=== PATIENT | male | born 1975 | race Caucasian/White ===

== ENCOUNTER 2018-07-18 09:14 | Emergency (ER) | payer OTHER, SELFPAY ==
[2018-07-18 09:00] VITALS: BP 126/75; PULSE 84; RESP 14; TEMP 37; O2SAT 95
[2018-07-18 09:15] VITALS: BP 126/73; PULSE 79; RESP 18; O2SAT 97
--- NOTE | 2018-07-18 09:54 | ED.NEUROSD ---
HPI - Neuro Symptoms/Deficit General Chief Complaint: Neuro Symptoms/Deficit Stated Complaint: Confusion Time Seen by Provider: 07/18/18 09:15 Source: patient, family and EMS Mode of arrival: ambulatory Limitations: no limitations History of Present Illness HPI Narrative: Patient is brought to the emergency department after being found to seem incoordinated and mentating slowly when entering the [employer] base this morning. 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 He said he decided to stay up last night and do his paperwork, and was up till 4:00 a.m. this morning. Patient states he normally gets up at 5 to go to work. Patient states generally, he gets 5-6 hours of sleep at night. Patient denies any recent illnesses. He has not had any chest pain, shortness of breath, focal neurologic deficits, nausea, vomiting, or diarrhea. He denies any recent head injury. He states that he is healthy other than hypertension. Patient was admitted to the hospital in April for ?Wellbutrin toxicity?, after having a 57 minutes grand mal seizure, he states. Patient was kept in the intensive care unit, and was discharged on valproic acid. He has been followed up since, but it is not clear whether he has a seizure disorder officially diagnosed. Patient states he does not feel as though he had a seizure today. He states that he felt very tired after being up all night, and states it has been difficult to stay awake. He states that this he feels is what led to his seeming incoordination. Patient denies visual changes. He denies weakness or numbness. No headache. Patient states he took his normal medications, including his OxyContin this morning. He states his medications do make him feel a little bit drowsy normally. He states he is feeling a little bit better than it was, but feels like he needs a nap. The patient denies use of alcohol or drugs. On Anticoagulants: No Related Data Home Medications Medication Instructions Recorded Confirmed Seroquel 75 mg PO TID 07/18/18 07/18/18 acetaminophen 1,000 mg PO BID 07/18/18 07/18/18 clonazepam 1 mg PO QAM PRN 07/18/18 07/18/18 hydrochlorothiazide 25 mg PO QAM 07/18/18 07/18/18 lacosamide [Vimpat] 200 mg PO BID 07/18/18 07/18/18 montelukast [Singulair] 10 mg PO QAM 07/18/18 07/18/18 nebivolol [Bystolic] 10 mg PO QPM 07/18/18 07/18/18 oxycodone 5 mg Q8HR 07/18/18 07/18/18 oxycodone [OxyContin] 30 mg PO Q8HR 07/18/18 07/18/18 ranitidine HCl [Zantac] 150 mg PO BID 07/18/18 07/18/18 rosuvastatin 20 mg PO QPM 07/18/18 07/18/18 valproic acid 500 mg PO BID 07/18/18 07/18/18 Allergies Allergy/AdvReac Type Severity Reaction Status Date / Time bupropion [From Wellbutrin] Allergy Severe Seizure Verified 07/18/18 09:24 duloxetine [From Cymbalta] Allergy Unknown Verified 07/18/18 09:24 levetiracetam [From Keppra] Allergy Unknown Verified 07/18/18 09:24 Review of Systems Constitutional Denies chills, Denies fever(s), Denies lethargy and Denies weakness Eyes Denies change in vision, Denies eye discharge, Denies irritation and Denies loss of vision ENT Ears, Nose, Mouth, and Throat: Denies change in voice, Denies neck pain and Denies sore throat Cardiovascular Denies chest pain, Denies irregular heart rhythm, Denies lightheadedness, Denies palpitations, Denies dyspnea, Denies dyspnea on exertion and Denies orthopnea Respiratory Denies cough, Denies dyspnea, Denies dyspnea on exertion and Denies wheezing Gastrointestinal Gastrointestinal: Denies abdominal pain, Denies change in bowel habits, Denies diarrhea, Denies nausea and Denies vomiting Genitourinary Denies hematuria, Denies flank pain, Denies urinary incontinence and Denies urinary urgency Musculoskeletal Denies neck pain Integumentary/Breasts Denies pruritus, Denies erythema, Denies rash and Denies wounds Neurologic Denies confusion, Reports lack of coordination, Denies loss of vision and Denies weakness Comments: Fatigue Psychiatric Denies anxiety, Denies confusion, Denies depression, Denies homicidal ideation and Denies suicidal ideation Endocrine Denies palpitations Hematologic/Lymphatic Denies easy bruising Allergic/Immunologic Denies wheezing [facility] Medical History (Updated 07/18/18 @ 13:18 by Shirley Randolph MD) HTN (hypertension) (Acute) Seizure-like activity (Acute) Chronic back pain (Acute) Chronic pain (Acute) Endotracheally intubated (Acute) Hearing loss (Acute) Hyperlipemia (Acute) Hypertriglyceridemia (Acute) Macular edema (Acute) Seizure disorder (Acute) Surgical History (Updated 07/18/18 @ 10:20 by Hailey Vang RN) No pertinent past surgical history (Acute) Hx of spinal fusion (Acute) Social History Smoking Status: Never smoker Social History Smoking Status: Never smoker Exam Initial Vital Signs Initial Vital Signs: Vital Signs Temperature 98.6 F 07/18/18 09:00 Pulse Rate 84 07/18/18 09:00 Respiratory Rate 14 07/18/18 09:00 Blood Pressure 126/75 07/18/18 09:00 Pulse Oximetry 95 07/18/18 09:00 Const General: cooperative and well developed Nutritional Appearance: well nourished and overweight Orientation: awake, oriented x3 and not confused Other: Patient is drowsy, but alert when aroused. He does occasionally fall asleep during our conversation. HENMT Head: normocephalic and atraumatic Ears: external ears normal Nose: external nose normal and No nasal discharge Face and sinus: face symmetric and No dry mucous membranes Mouth: oral mucosae normal and moist mucous membranes Teeth and gingiva: dentition normal Eyes General: appearance normal, both eyes and all related structures Eyelids: eyelids normal Conjunctivae: conjunctivae normal Sclera: sclerae normal Pupils: PERRL EOM: EOM intact bilaterally Neck Neck: normal visual inspection, trachea midline, No lymphadenopathy, No midline deformity and No JVD Lymphatic: No lymphedema Chest Chest: normal inspection of the chest Resp Effort & Inspection: normal respiratory effort, able to speak in complete sentences, no respiratory distress and no use of accessory muscles Auscultation: clear to auscultation bilaterally, no rales, no rhonchi and no wheezes Cardio Rate: regular rate Rhythm: regular rhythm Heart Sounds: no click, no gallops, no murmurs and no rubs Pulses: normal peripheral pulses GI Inspection: non-distended Palpation: soft, no hepatosplenomegaly, No guarding, No pulsatile mass and No tender Auscultation: normal bowel sounds Back/Spine/Pelvis Back: No CVA tenderness Cervical Spine: cervical ROM normal and No pain with cervical ROM Thoracic/Lumbar Spine: thoracic and lumbar spine normal to inspection Skin General: no rashes or lesions noted, No jaundice and No petechiae Neuro General: alert, oriented x3, gait normal and no focal motor deficits Speech: speech normal Extrem General: full ROM, no clubbing, cyanosis or edema, no pedal edema and no calf tenderness Psych Appearance: well kempt Mental Status: mental status grossly normal Attitude: cooperative Thought Content: normal and suicidality Judgment: judgment good Course Course Narrative: Patient was worked up with labs, and given IV fluids in the emergency department. The patient did not have any obvious triggers for this episode, and I felt that most likely, he was suffering from severe sleep deprivation, as he does not get enough sleep at baseline, and got only 1 hour sleep last night. Additionally, the patient has a number of medications which could be potentially sedating, and this probably has also contributed. The patient was worked up with labs, including ethanol level, and was observed in the emergency department. His , a nurse practitioner, did arrive and provided more information. The patient was re-evaluated after several hours, and found to be doing much better. He was able to ambulate to the bathroom on his own without difficulty. We have discussed that patient very much needs to get sleep on a regular basis. One of the patient's superiors is also present, and states that the patient may be off the rest of today as well as tomorrow to recuperate. The patient would like to come to work tomorrow, and his superior has stated that the patient should come in late if he does come in. I have written a work note to this effect. Patient and family are comfortable with the patient being discharged home, and we have discussed home management the symptoms, as well as the usual indications for return. Orders Ordered: ED Orders 07/18/18 09:30 Complete Blood Count AUTO DIFF Stat Comprehensive Metabolic Panel Stat Ethanol (ETOH) Stat Lipase Stat 07/18/18 09:50 Valproic Acid (Depakene) Total Stat Vital Signs - 8 hr 04/03/19 09:00 07/18/18 09:15 07/18/18 10:10 Temperature 98.6 F Pulse Rate 84 79 74 Respiratory Rate 14 18 21 Blood Pressure 126/75 Blood Pressure [Right Arm] 126/73 113/68 Pulse Oximetry 95 97 98 07/18/18 10:45 07/18/18 11:28 07/18/18 12:30 Temperature Pulse Rate 75 70 61 Respiratory Rate 18 13 14 Blood Pressure Blood Pressure [Right Arm] 120/56 L 103/66 107/59 L Pulse Oximetry 98 93 92 MDM - Neuro Symptoms/Deficit Medical Records Attestation: I reviewed the patient's medical records. Lab Data Attestation: I reviewed the patient's lab results. Result diagrams: 07/18/18 09:30 07/18/18 09:30 Lab Results 07/18/18 07/18/18 07/18/18 Range/Units 09:30 09:30 11:20 WBC 6.1 (4.5-11.0) X10^3/uL RBC 4.54 (4.5-5.9) X10^6/uL Hgb 13.4 L (13.5-17.5) g/dL Hct 39.5 L (41-53) % MCV 87.0 (80-100) fL MCH 29.6 (26-34) PG MCHC 34.0 (30-36) % RDW 13.7 (11.6-14.8) % Plt Count 263 (150-400) X10^3/uL Neut % (Auto) 48.0 L (50-75) % Lymph % (Auto) 34.2 (25-40) % [place] % (Auto) 11.6 (3-14) % Eos % (Auto) 5.3 H (2-4) % Baso % (Auto) 0.9 (0-2) % Neut # (Auto) 2900 (1467-6431) /uL Lymph # (Auto) 2100 (5496-8981) /uL [place] # (Auto) 700 (0-900) /uL Eos # (Auto) 300 (0-450) /uL Baso # (Auto) 100 (0-100) /uL Sodium 141 (137-145) mmol/L Potassium 3.9 (3.4-5.1) mmol/L Chloride 99 (98-107) mmol/L Carbon Dioxide 28 (22-32) mmol/L BUN 17 (9-20) mg/dL Creatinine 0.80 (0.66-1.25) mg/dL Estimated GFR > 60.0 (>60) mL/min BUN/Creatinine Ratio 21.3 (6-22) Glucose 186 H (70-100) mg/dL Calcium 9.6 (8.4-10.2) mg/dL Total Bilirubin 0.3 (0.2-1.3) mg/dL AST 51 (17-59) IU/L ALT 47 (21-72) IU/L Alkaline Phosphatase 51 (38-126) U/L Total Protein 7.5 (6.3-8.2) g/dL Albumin 4.4 (3.5-5.0) g/dL Globulin 3.1 (1.7-4.1) g/dL Albumin/Globulin Ratio 1.4 (1.0-2.8) Lipase 53 (23-300) U/L Urine Opiates Screen Cancelled Ur Oxycodone Screen Cancelled Urine Methadone Screen Cancelled Ur Barbiturates Screen Cancelled U Tricyclic Antidepress Cancelled Ur Phencyclidine Scrn Cancelled Ur Amphetamines Screen Cancelled U Methamphetamines Scrn Cancelled Ur MDMA Scrn (Ecstasy) Cancelled U Benzodiazepines Scrn Cancelled Urine Cocaine Screen Cancelled U Marijuana (THC) Screen Cancelled Ethyl Alcohol < 10 mg/dL Urine Dip Bedside Urine Glucose Negative Bedside Urine Bilirubin - Negative Bedside Urine Ketone + 15 Urine Specific [place] 1.030 Bedside Urine Occult Blood - Negative Bedside Urine pH 6.0 Bedside Urine Protein - Negative Bedside Urine Urobilinogen - Negative Bedside Urine Nitrite - Negative Bedside Urine Leukocytes - Negative Esterase Discharge Plan Departure Patient Disposition: Home Clinical Impression: Sleep deprivation Adverse drug reaction Qualifiers: Encounter type: initial encounter Qualified Code(s): T50.905A - Adverse effect of unspecified drugs, medicaments and biological substances, initial encounter Discharge Date/Time: 07/18/18 13:27 Interventions: ED Discharge Assessment Last Done: 07/18/18 13:36 Instructions: DI for Adverse Drug Reaction -- Other, DI for Insomnia Prescriptions: No Action valproic acid 250 mg Capsule 500 mg PO BID RF: 0 Bystolic 10 mg Tablet 10 mg PO QPM RF: 0 Vimpat 200 mg Tablet 200 mg PO BID RF: 0 hydrochlorothiazide 25 mg tablet 25 mg PO QAM RF: 0 rosuvastatin 20 mg tablet 20 mg PO QPM RF: 0 oxycodone [OxyContin] 30 mg tablet,oral only,ext.rel.12 hr 30 mg PO Q8HR RF: 0 oxycodone 10 mg tablet 5 mg Q8HR RF: 0 acetaminophen 500 mg Tablet 1,000 mg PO BID RF: 0 ranitidine HCl [Zantac] 150 mg Tablet 150 mg PO BID RF: 0 montelukast [Singulair] 10 mg Tablet 10 mg PO QAM RF: 0 Seroquel bottle 75 mg PO TID RF: 0 clonazepam 1 mg Tablet,Disintegrating 1 mg PO QAM PRN (Reason: Seizure Activity) RF: 0 Referrals: Dane Kenny [Primary Care Provider] - Stand Alone Forms: Work Release Note
--- NOTE | 2018-07-18 10:01 | ED_ITS ---
HPI - Neuro Symptoms/Deficit General Chief Complaint: Neuro Symptoms/Deficit Stated Complaint: Confusion Time Seen by Provider: 07/18/18 09:15 Source: patient, family and EMS Mode of arrival: ambulatory Limitations: no limitations History of Present Illness HPI Narrative: Patient is brought to the emergency department after being found to seem incoordinated and [place] [employer] [place] 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 He said he decided to stay up last night and do his paperwork, and was up till 4:00 a.m. this morning. Patient states he normally gets up at 5 to go to work. Patient states generally, he gets 5-6 hours of sleep at night. Patient denies any recent illnesses. He has not had any chest pain, shortness o f breath, focal neurologic deficits, nausea, vomiting, or diarrhea. He denies any recent head injury. He states that he is healthy other than hypertension. Patient was admitted to the hospital in April for ?Wellbutrin toxicity?, after having a 57 minutes grand mal seizure, he states. Patient was kept in the intensive care unit, and was discharged on valproic acid. He has been followed up since, but it is not clear whether he has a seizure disorder officially diagnosed. Patient states he does not feel as though he had a seizure today. He states that he felt very tired after being up all night, and states it has been difficult to stay awake. He states that this he feels is what led to his seeming incoordination. Patient denies visual changes. He denies weakness or numbness. No headache. Patient states he took his normal medications, including his OxyContin this morning. He states his medications do make him feel a little bit drowsy normally. He states he is feeling a little bit better than it was, but feels like he needs a nap. The patient denies use of alcohol or drugs. On Anticoagulants: No Related Data Home Medications Medication Instructions Recorded Confirmed Seroquel 75 mg PO TID 07/18/18 07/18/18 acetaminophen 1,000 mg PO BID 07/18/18 07/18/18 clonazepam 1 mg PO QAM PRN 07/18/18 07/18/18 hydrochlorothiazide 25 mg PO QAM 07/18/18 07/18/18 lacosamide [Vimpat] 200 mg PO BID 07/18/18 07/18/18 montelukast [Singulair] 10 mg PO QAM 07/18/18 07/18/18 nebivolol [Bystolic] 10 mg PO QPM 07/18/18 07/18/18 oxycodone 5 mg Q8HR 07/18/18 07/18/18 oxycodone [OxyContin] 30 mg PO Q8HR 07/18/18 07/18/18 ranitidine HCl [Zantac] 150 mg PO BID 07/18/18 07/18/18 rosuvastatin 20 mg PO QPM 07/18/18 07/18/18 valproic acid 500 mg PO BID 07/18/18 07/18/18 Allergies Allergy/AdvReac Type Severity Reaction Status Date / Time bupropion [From Wellbutrin] Allergy Severe Seizure Verified 07/18/18 09:24 duloxetine [From Cymbalta] Allergy Unknown Verified 07/18/18 09:24 levetiracetam [From Keppra] Allergy Unknown Verified 07/18/18 09:24 Review of Systems Constitutional Denies chills, Denies fever(s), Denies lethargy and Denies weakness Eyes Denies change in vision, Denies eye discharge, Denies irritation and Denies loss of vision ENT Ears, Nose, Mouth, and Throat: Denies change in voice, Denies neck pain and Denies sore throat Cardiovascular Denies chest pain, Denies irregular heart rhythm, Denies lightheadedness, Denies palpitations, Denies dyspnea, Denies dyspnea on exertion and Denies orthopnea Respiratory Denies cough, Denies dyspnea, Denies dyspnea on exertion and Denies wheezing Gastrointestinal Gastrointestinal: Denies abdominal pain, Denies change in bowel habits, Denies diarrhea, Denies nausea and Denies vomiting Genitourinary Denies hematuria, Denies flank pain, Denies urinary incontinence and Denies urinary urgency Musculoskeletal Denies neck pain Integumentary/Breasts Denies pruritus, Denies erythema, Denies rash and Denies wounds Neurologic Denies confusion, Reports lack of coordination, Denies loss of vision and Denies weakness Comments: Fatigue Psychiatric Denies anxiety, Denies confusion, Denies depression, Denies homicidal ideation and Denies suicidal ideation Endocrine Denies palpitations Hematologic/Lymphatic Denies easy bruising Allergic/Immunologic Denies wheezing [facility] [place] Medical History (Updated 07/18/18 @ 13:18 by Shirley Randolph MD) HTN (hypertension) (Acute) Seizure-like activity (Acute) Chronic back pain (Acute) Chronic pain (Acute) Endotracheally intubated (Acute) Hearing loss (Acute) Hyperlipemia (Acute) Hypertriglyceridemia (Acute) Macular edema (Acute) Seizure disorder (Acute) Surgical History (Updated 07/18/18 @ 10:20 by Hailey Vang RN) No pertinent past surgical history (Acute) Hx of spinal fusion (Acute) Social History Smoking Status: Never smoker Social History Smoking Status: Never smoker Exam Initial Vital Signs Initial Vital Signs: Vital Signs Temperature 98.6 F 07/18/18 09:00 Pulse Rate 84 07/18/18 09:00 Respiratory Rate 14 07/18/18 09:00 Blood Pressure 126/75 07/18/18 09:00 Pulse Oximetry 95 07/18/18 09:00 Const General: cooperative and well developed Nutritional Appearance: well nourished and overweight Orientation: awake, oriented x3 and not confused Other: Patient is drowsy, but alert when aroused. He does occasionally fall asleep during our conversation. [facility] Head: normocephalic and atraumatic Ears: external ears normal Nose: external nose normal and No nasal discharge Face and sinus: face symmetric and No dry mucous membranes Mouth: oral mucosae normal and moist mucous membranes Teeth and gingiva: dentition normal Eyes General: appearance normal, both eyes and all related structures Eyelids: eyelids normal Conjunctivae: conjunctivae normal Sclera: sclerae normal Pupils: PERRL EOM: EOM intact bilaterally Neck Neck: normal visual inspection, trachea midline, No lymphadenopathy, No midline deformity and No JVD Lymphatic: No lymphedema Chest Chest: normal inspection of the chest Resp Effort & Inspection: normal respiratory effort, able to speak in complete sentences, no respiratory distress and no use of accessory muscles Auscultation: clear to auscultation bilaterally, no rales, no rhonchi and no wheezes Cardio Rate: regular rate Rhythm: regular rhythm Heart Sounds: no click, no gallops, no murmurs and no rubs Pulses: normal peripheral pulses GI Inspection: non-distended Palpation: soft, no hepatosplenomegaly, No guarding, No pulsatile mass and No tender Auscultation: normal bowel sounds Back/Spine/Pelvis Back: No CVA tenderness Cervical Spine: cervical ROM normal and No pain with cervical ROM Thoracic/Lumbar Spine: thoracic and lumbar spine normal to inspection Skin General: no rashes or lesions noted, No jaundice and No petechiae Neuro General: alert, oriented x3, gait normal and no focal motor deficits Speech: speech normal Extrem General: full ROM, no clubbing, cyanosis or edema, no pedal edema and no calf tenderness Psych Appearance: well kempt Mental Status: mental status grossly normal Attitude: cooperative Thought Content: normal and suicidality Judgment: judgment good Course Course Narrative: Patient was worked up with labs, and given IV fluids in the emergency department. The patient did not have any obvious triggers for this episode, and I felt that most likely, he was suffering from severe sleep deprivation, as he does not get enough sleep at baseline, and got only 1 hour sl eep last night. Additionally, the patient has a number of medications which could be potentially sedating, and this probably has also contributed. The patient was worked up with labs, including ethanol level, and was observed in the emergency department. His , a nurse practitioner, did arrive and provided more information. The patient was re-evaluated after several hours, and found to be doing much better. He was able to ambulate to the bathroom on his own without difficulty. We have discussed that patient very much needs to get sleep on a regular basis. One of the patient's superiors is also present, and states that the patient may be off the rest of today as well as roger orrow to recuperate. The patient would like to come to work tomorrow, and his superior has stated that the patient should come in late if he does come in. I have written a work note to this effect. Patient and family are comfortable with the patient being discharged home, and we have discussed home management the symptoms, as well as the usual indications for return. Orders Ordered: ED Orders 07/18/18 09:30 Complete Blood Count AUTO DIFF Stat Comprehensive Metabolic Panel Stat Ethanol (ETOH) Stat Lipase Stat 07/18/18 09:50 Valproic Acid (Depakene) Total Stat Vital Signs - 8 hr 07/18/18 09:00 07/18/18 09:15 07/18/18 10:10 Temperature 98.6 F Pulse Rate 84 79 74 Respiratory Rate 14 18 21 Blood Pressure 126/75 Blood Pressure [Right Arm] 126/73 113/68 Pulse Oximetry 95 97 98 07/18/18 10:45 07/18/18 11:28 07/18/18 12:30 Temperature Pulse Rate 75 70 61 Respiratory Rate 18 13 14 Blood Pressure Blood Pressure [Right Arm] 120/56 L 103/66 107/59 L Pulse Oximetry 98 93 92 MDM - Neuro Symptoms/Deficit Medical Records Attestation: I reviewed the patient's medical records. Lab Data Attestation: I reviewed the patient's lab results. Result diagrams: 07/18/18 09:30 07/18/18 09:30 Lab Results 07/18/18 07/18/18 07/18/18 Range/Units 09:30 09:30 11:20 WBC 6.1 (4.5-11.0) X10^3/uL RBC 4.54 (4.5-5.9) X10^6/uL Hgb 13.4 L (13.5-17.5) g/dL Hct 39.5 L (41-53) % MCV 87.0 (80-100) fL MCH 29.6 (26-34) PG MCHC 34.0 (30-36) % RDW 13.7 (11.6-14.8) % Plt Count 263 (150-400) X10^3/uL Neut % (Auto) 48.0 L (50-75) % Lymph % (Auto) 34.2 (25-40) % Mitchell % (Auto) 11.6 (3-14) % Eos % (Auto) 5.3 H (2-4) % Baso % (Auto) 0.9 (0-2) % Neut # (Auto) 2900 (0729-0620) /uL Lymph # (Auto) 2100 (3023-2528) /uL Mitchell # (Auto) 700 (0-900) /uL Eos # (Auto) 300 (0-450) /uL Baso # (Auto) 100 (0-100) /uL Sodium 141 (137-145) mmol/L Potassium 3.9 (3.4-5.1) mmol/L Chloride 99 (98-107) mmol/L Carbon Dioxide 28 (22-32) mmol/L BUN 17 (9-20) mg/dL Creatinine 0.80 (0.66-1.25) mg/dL Estimated GFR > 60.0 (>60) mL/min BUN/Creatinine Ratio 21.3 (6-22) Glucose 186 H (70-100) mg/dL Calcium 9.6 (8.4-10.2) mg/dL Total Bilirubin 0.3 (0.2-1.3) mg/dL AST 51 (17-59) IU/L ALT 47 (21-72) IU/L Alkaline Phosphatase 51 (38-126) U/L Total Protein 7.5 (6.3-8.2) g/dL Albumin 4.4 (3.5-5.0) g/dL Globulin 3.1 (1.7-4.1) g/dL Albumin/Globulin Ratio 1.4 (1.0-2.8) Lipase 53 (23-300) U/L Urine Opiates Screen Cancelled Ur Oxycodone Screen Cancelled Urine Methadone Screen Cancelled Ur Barbiturates Screen Cancelled U Tricyclic Antidepress Cancelled Ur Phencyclidine Scrn Cancelled Ur Amphetamines Screen Cancelled U Methamphetamines Scrn Cancelled Ur MDMA Scrn (Ecstasy) Cancelled U Benzodiazepines Scrn Cancelled Urine Cocaine Screen Cancelled U Marijuana (THC) Screen Cancelled Ethyl Alcohol < 10 mg/dL Urine Dip Bedside Urine Glucose Negative Bedside Urine Bilirubin - Negative Bedside Urine Ketone + 15 Urine Specific [place] 1.030 Bedside Urine Occult Blood - Negative Bedside Urine pH 6.0 Bedside Urine Protein - Negative Bedside Urine Urobilinogen - Negative Bedside Urine Nitrite - Negative Bedside Urine Leukocytes - Negative Esterase Discharge Plan Departure Patient Disposition: Home Clinical Impression: Sleep deprivation Adverse drug reaction Qualifiers: Encounter type: initial encounter Qualified Code(s): T50.905A - Adverse effect of unspecified drugs, medicaments and biological substances, initial encounter Discharge Date/Time: 07/18/18 13:27 Interventions: ED Discharge Assessment Last Done: 07/18/18 13:36 Instructions: DI for Adverse Drug Reaction -- Other, DI for Insomnia Prescriptions: No Action valproic acid 250 mg Capsule 500 mg PO BID RF: 0 Bystolic 10 mg Tablet 10 mg PO QPM RF: 0 Vimpat 200 mg Tablet 200 mg PO BID RF: 0 hydrochlorothiazide 25 mg tablet 25 mg PO QAM RF: 0 rosuvastatin 20 mg tablet 20 mg PO QPM RF: 0 oxycodone [OxyContin] 30 mg tablet,oral only,ext.rel.12 hr 30 mg PO Q8HR RF: 0 oxycodone 10 mg tablet 5 mg Q8HR RF: 0 acetaminophen 500 mg Tablet 1,000 mg PO BID RF: 0 ranitidine HCl [Zantac] 150 mg Tablet 150 mg PO BID RF: 0 montelukast [Singulair] 10 mg Tablet 10 mg PO QAM RF: 0 Seroquel bottle 75 mg PO TID RF: 0 clonazepam 1 mg Tablet,Disintegrating 1 mg PO QAM PRN (Reason: Seizure Activity) RF: 0 Referrals: Dane Kenny [Primary Care Provider] - Stand Alone Forms: Work Release Note
[2018-07-18 10:04] LABS: Add Manual Diff / Slide Review NO; Basophils Absolute Auto 100 /uL (0-100); Basophils Percent Auto 0.9 % (0-2); Eosinophils Absolute Auto 300 /uL (0-450); Eosinophils Percent Auto 5.3 % (2-4); Hematocrit 39.5 % (41-53); Hemoglobin 13.4 g/dL (13.5-17.5); Lymphocytes Absolute Auto 2100 /uL (1100-4500); Lymphocytes Percent Auto 34.2 % (25-40); Mean Corpuscular Hemoglobin 29.6 PG (26-34); Monocytes Absolute Auto 700 /uL (0-900); Monocytes Percent Auto 11.6 % (3-14); Neutrophils Absolute Auto 2900 /uL (1500-7000); Platelet Count 263 X10^3/uL (150-400); Red Blood Cell Count 4.54 X10^6/uL (4.5-5.9); Red Cell Distribution Width 13.7 % (11.6-14.8); White Blood Cell Count 6.1 X10^3/uL (4.5-11.0)
[2018-07-18 10:10] VITALS: BP 113/68; PULSE 74; RESP 21; O2SAT 98
[2018-07-18 10:11] LABS: Alanine Aminotransferase 47 IU/L (21-72); Albumin 4.4 g/dL (3.5-5.0); Albumin Globulin Ratio 1.4 (1.0-2.8); Alkaline Phosphatase 51 U/L (38-126); Aspartate Aminotransferase 51 IU/L (17-59); BUN Creatinine Ratio 21.3 (6-22); Bilirubin Total 0.3 mg/dL (0.2-1.3); Blood Urea Nitrogen 17 mg/dL (9-20); Calcium 9.6 mg/dL (8.4-10.2); Carbon Dioxide 28 mmol/L (22-32); Chloride 99 mmol/L (98-107); Estimated Glomerular Filt Rate > 60.0 mL/min (>60); Ethanol (ETOH) < 10 mg/dL; Globulin 3.1 g/dL (1.7-4.1); Glucose 186 mg/dL (70-100); HEMOLYSIS 27 (0-50); Lipase 53 U/L (23-300); Potassium 3.9 mmol/L (3.4-5.1); Sodium 141 mmol/L (137-145); Total Protein 7.5 g/dL (6.3-8.2)
[2018-07-18 10:45] VITALS: BP 120/56; PULSE 75; RESP 18; O2SAT 98
[2018-07-18 11:28] VITALS: BP 103/66; PULSE 70; RESP 13; O2SAT 93
[2018-07-18 12:30] VITALS: BP 107/59; PULSE 61; RESP 14; O2SAT 92
[2018-07-20 14:05] LABS: Valproic Acid (Depakene) Total 62.4 mg/L (50.0-100.0)
== END 2018-07-18 13:27 | disposition home or self-care (01) ==
PROVIDERS: Emergency Provider Emergency Medicine; PCP Family Medicine
DX: Z72.820 Sleep deprivation (principal); T50.905A Adverse effect of unspecified drugs, medicaments and biological substances, initial encounter
CPT/HCPCS: 36415; 80053; 80164; 80320; 81003; 83690; 85025; 93041; 99283; 99284; 99291